=== PATIENT | male | born 1965 | race Caucasian/White ===

== ENCOUNTER 2017-11-12 08:36 | Emergency (ER) | payer BC ==
--- NOTE | 2017-11-12 08:57 | ED ---
General Adult HPI - General Chief complaint: Abdominal Pain Stated complaint: Abd Pain Time Seen by Provider: 11/12/17 08:46 Source: patient, RN notes reviewed Mode of arrival: ambulatory Limitations: no limitations - History of Present Illness Initial comments: Patient is a 52-year-old male presenting to the emergency room today with a chief complaint of left lower quadrant abdominal pain started approximately 2 hours ago. Patient states he was up getting ready this morning when he began having some discomfort in the left lower quadrant. He states this pain seems to be coming and going. Currently rates it a 5/10. Denies any radiation. Patient does admit that he fell again a difficult time urinating earlier. Thought he maybe saw some blood in his urine earlier. He does admit that approximately a month ago he had a dark bowel movement was worried that it could 've been blood. Patient denies any bowel movement this morning. He denies any other complaints or symptoms currently. Patient denies any recent fever, chills , shortness of breath, chest pain, back pain, nausea or vomiting, numbness or tingling, constipation or diarrhea, headaches or visual changes, or any other complaints. - Related Data Previous Rx's Medication Instructions Recorded Hydrocodone/Acetaminophen [[place] 1 each PO Q6HR PRN #12 tab 11/12/17 5-325] Ibuprofen [Motrin] 600 mg PO Q6HR PRN #40 day 11/12/17 Ondansetron [Zofran] 4 mg PO Q8HR PRN #15 tab 11/12/17 Tamsulosin [Flomax] 0.4 mg PO DAILY #10 cap 11/12/17 Allergies Allergy/AdvReac Type Severity Reaction Status Date / Time lidocaine Allergy Itching Verified 11/12/17 09:09 Review of Systems ROS Statement: Those systems with pertinent positive or pertinent negative responses have been documented in the HPI. ROS Other: All systems not noted in ROS Statement are negative. Past Medical History Past Medical History: No Reported History History of Any Multi-Drug Resistant Organisms: None Reported Past Surgical History: Orthopedic Surgery Additional Past Surgical History / Comment(s): bilateral knee surgery, nasal surgery Past Psychological History: No Psychological Hx Reported Smoking Status: Never smoker Past Alcohol Use History: Occasional Past Drug Use History: None Reported General Exam - General Exam Comments Initial Comments: General: The patient is awake and alert, in no distress, and does not appear acutely ill. Eye: Pupils are equal, round and reactive to light, extra-ocular movements are intact. No nystagmus. There is normal conjunctiva bilaterally. No signs of icterus. Ears, nose, mouth and throat: There are moist mucous membranes and no oral lesions. Neck: The neck is supple, there is no tenderness or JVD. Cardiovascular: There is a regular rate and rhythm. No murmur, rub or gallop is appreciated. Respiratory: Lungs are clear to auscultation, respirations are non-labored, breath sounds are equal. No wheezes, stridor, rales, or rhonchi. Gastrointestinal: Soft, non-distended, non-tender abdomen without masses or organomegaly noted. There is no rebound or guarding present. No CVA tenderness. Musculoskeletal: Normal ROM, no tenderness. Strength 5/5. Sensation intact. Pulses equal bilaterally 2+. Neurological: A&O x 3. CN II-XII intact, There are no obvious motor or sensory deficits. Coordination appears grossly intact. Speech is normal. Skin: Skin is warm and dry and no rashes or lesions are noted. Psychiatric: Cooperative, appropriate mood & affect, normal judgment. Limitations: no limitations Course Vital Signs 11/12/17 11/12/17 08:40 09:26 Temperature 97.7 F Pulse Rate 64 74 Respiratory 18 17 Rate Blood Pressure 127/78 111/75 O2 Sat by Pulse 98 98 Oximetry - Reevaluation(s) Reevaluation #1: 11/12/17 08:56 Patient currently resting comfortable. Vitals are stable. Patient admitted into left lower quadrant pain starting 2 hours ago that comes and goes. Possible hematuria this morning. Patient will have urinalysis along with blood work obtained. Patient states does not want anything for pain at this time. Medical Decision Making - Medical Decision Making Patient's a CT does show a 4 mm stone on the left. Patient's urinalysis no signs of infection. Patient will be treated with Flomax, pain medication given a prescription for [place] and advised follow-up with urology if symptoms do not improve over 2 days. - Lab Data Result diagrams: 11/12/17 08:54 11/12/17 08:54 Lab Results 11/12/17 11/12/17 11/12/17 Range/Units 08:54 08:54 08:54 WBC 4.8 (3.8-10.6) k/uL RBC 5.28 (4.30-5.90) m/uL Hgb 15.8 (13.0-17.5) gm/dL Hct 46.0 (39.0-53.0) % MCV 87.2 (80.0-100.0) fL MCH 29.9 (25.0-35.0) pg MCHC 34.3 (31.0-37.0) g/dL RDW 13.1 (11.5-15.5) % Plt Count 157 (150-450) k/uL Neutrophils % 64 % Lymphocytes % 25 % Monocytes % 6 % Eosinophils % 2 % Basophils % 1 % Neutrophils # 3.1 (1.3-7.7) k/uL Lymphocytes # 1.2 (1.0-4.8) k/uL Monocytes # 0.3 (0-1.0) k/uL Eosinophils # 0.1 (0-0.7) k/uL Basophils # 0.0 (0-0.2) k/uL Sodium 141 (137-145) mmol/L Potassium 3.9 (3.5-5.1) mmol/L Chloride 106 (98-107) mmol/L Carbon Dioxide 26 (22-30) mmol/L Anion Gap 9 mmol/L BUN 12 (9-20) mg/dL Creatinine 0.79 (0.66-1.25) mg/dL Est GFR (CKD-EPI)AfAm >90 (>60 ml/min/1.73 sqM) Est GFR (CKD-EPI)NonAf >90 (>60 ml/min/1.73 sqM) Glucose 102 H (74-99) mg/dL Calcium 9.4 (8.4-10.2) mg/dL Total Bilirubin 0.5 (0.2-1.3) mg/dL AST 35 (17-59) U/L ALT 55 (21-72) U/L Alkaline Phosphatase 70 (38-126) U/L Total Protein 6.9 (6.3-8.2) g/dL Albumin 4.5 (3.5-5.0) g/dL Amylase 59 (30-110) U/L Lipase 66 (23-300) U/L Urine Color Light Red Urine Appearance Cloudy (Clear) Urine pH 5.5 (5.0-8.0) Ur Specific [place] 1.023 (1.001-1.035) Urine Protein 1+ H (Negative) Urine Glucose (UA) Negative (Negative) Urine Ketones Negative (Negative) Urine Blood Large H (Negative) Urine Nitrite Negative (Negative) Urine Bilirubin Negative (Negative) Urine Urobilinogen <2.0 (<2.0) mg/dL Ur Leukocyte Esterase Negative (Negative) Urine RBC >182 H (0-5) /hpf Urine WBC <1 (0-5) /hpf Ur Squamous Epith Cells <1 (0-4) /hpf Urine Mucus Moderate H (None) /hpf Disposition Clinical Impression: Kidney stones Disposition: HOME SELF-CARE Condition: Good Instructions: Kidney Stones (ED) Additional Instructions: Please use medication as discussed. Please follow-up with urology/family doctor in the next 2 days of symptoms have not improved. Please return to emergency room if the symptoms increase or worsen or for any other concerns. Prescriptions: Hydrocodone/Acetaminophen [[place] 5-325] 1 each PO Q6HR PRN #12 tab PRN Reason: Pain Ibuprofen [Motrin] 600 mg PO Q6HR PRN #40 day PRN Reason: Pain Ondansetron [Zofran] 4 mg PO Q8HR PRN #15 tab PRN Reason: Nausea Tamsulosin [Flomax] 0.4 mg PO DAILY #10 cap Is patient prescribed a controlled substance at d/c from ED?: No Referrals: None,Stated [Primary Care Provider] - 1-2 days Sky Traylor MD [STAFF PHYSICIAN] - 1-2 days Time of Disposition: 11:07
[2017-11-12 09:16] LABS: Basophils % (A) 1 %; Eosinophils # (A) 0.1 k/uL (0-0.7); Eosinophils % (A) 2 %; HGB 15.8 gm/dL (13.0-17.5); Lymphocytes # (A) 1.2 k/uL (1.0-4.8); Lymphocytes % (A) 25 %; MCH 29.9 pg (25.0-35.0); MCHC 34.3 g/dL (31.0-37.0); MCV 87.2 fL (80.0-100.0); Monocytes # (A) 0.3 k/uL (0-1.0); Monocytes % (A) 6 %; Neutrophils # (A) 3.1 k/uL (1.3-7.7); Neutrophils % (A) 64 %; Platelet Count 157 k/uL (150-450); RBC 5.28 m/uL (4.30-5.90); RDW 13.1 % (11.5-15.5); WBC 4.8 k/uL (3.8-10.6)
[2017-11-12] MEDS ORDERED: SODIUM CHLORIDE 0.9% 1,000 ML IV STA (09:25)
[2017-11-12] MEDS ORDERED: ONDANSETRON 4 MG/2 ML VIAL IVP STA (09:25)
[2017-11-12 09:27] LABS: ALT 55 U/L (21-72); AST 35 U/L (17-59); Albumin 4.5 g/dL (3.5-5.0); Alkaline Phosphatase 70 U/L (38-126); Amylase 59 U/L (30-110); Anion Gap 9 mmol/L; Blood Urea Nitrogen 12 mg/dL (9-20); Calcium 9.4 mg/dL (8.4-10.2); Carbon Dioxide 26 mmol/L (22-30); Chloride 106 mmol/L (98-107); Glucose 102 mg/dL (74-99); Lipase 66 U/L (23-300); Potassium 3.9 mmol/L (3.5-5.1); Sodium 141 mmol/L (137-145); Total Bilirubin 0.5 mg/dL (0.2-1.3); Total Protein 6.9 g/dL (6.3-8.2)
--- NOTE | 2017-11-12 09:30 | XR ---
EXAMINATION TYPE: XR KUB DATE OF EXAM: 11/12/2017 COMPARISON: NONE HISTORY: Pain TECHNIQUE: One view abdominal series FINDINGS: The osseous structures are intact. The bowel gas pattern is nonspecific. Lung bases are clear. Hype rtrophic change of the spine. There is a calcification between the left third and fourth transverse p rocess measuring 3 mm. IMPRESSION: 1. Nonspecific abdomen. 2. Question a mid left ureteral calculus measuring 3 mm.
[2017-11-12] MEDS ORDERED: MORPHINE SULFATE 4 MG/ML SYRINGE IVP STA (09:31)
[2017-11-12 09:33] LABS: Appearance,Urine Cloudy (Clear); Bilirubin,Urine Negative (Negative); Blood,Urine Large (Negative); Color,Urine Light Red; Glucose,Urine (UA) Negative (Negative); Ketones,Urine Negative (Negative); Leukocyte Esterase,Urine Negative (Negative); Mucus,Urine Moderate /hpf; Nitrite,Urine Negative (Negative); PH, Urine 5.5 (5.0-8.0); Protein,Urine 1+ (Negative); RBC,Urine >182 /hpf (0-5); Specific Gravity,Urine 1.023 (1.001-1.035); Squamous Epithelial Cell,Urine <1 /hpf (0-4); Urobilinogen,Urine <2.0 mg/dL (<2.0); WBC,Urine <1 /hpf (0-5)
--- NOTE | 2017-11-12 10:29 | CT ---
EXAMINATION TYPE: CT abdomen pelvis wo con DATE OF EXAM: 11/12/2017 COMPARISON: None INDICATION: LLQ pain, hematuria DLP: 832.2 mGycm, Automated exposure control for dose reduction was used. CONTRAST: 0 mL of Isovue 370. Study performed without Oral Contrast TECHNIQUE: Axial images were obtained from above the diaphragm to the pubic rami in the axial plane a t 5 mm thick sections. Reconstructed images are reviewed on the computer in the coronal plane. FINDINGS: Limited CT sections are obtained the lung bases. The lung bases are clear. CT ABDOMEN: Liver: Normal Spleen: Normal Pancreas: Normal Adrenal glands: The adrenal glands are normal. Gallbladder: Normal Kidneys: No masses are evident. There is a mild left hydronephrosis. There is a 0.4 cm obstructing pr oximal left ureteral stone just below the ureteral pelvic junction. Mild inflammatory type change robert ears to be adjacent to the proximal left ureter. Urinary bladder is decompressed. No cysts are presen t. Aorta: Normal Inferior vena cava: Normal. CT PELVIS: Loops of bowel within the abdomen and pelvis are normal. Study is without oral contrast limiting bowel evaluation. Couple of diverticular changes are within the sigmoid colon. Appendix: Normal as visualized. Urinary bladder: Decompressed and cannot be well evaluated. No obvious calcifications are evident. Genitourinary structures: Prostate calcification is present. Osseous structures: No suspicious lytic or sclerotic lesions. IMPRESSIONS: 1. 0.4 cm obstructing proximal left ureteral stone with mild left hydronephrosis. 2. Diverticulosis without acute diverticulitis.
[2017-11-12 11:23] VITALS: BP 119/72; PULSE 61; RESP 18; TEMP 98.1
== END 2017-11-12 11:23 | disposition home or self-care (01) ==
LOC: EC 08:36
DX: N20.0 Calculus of kidney (principal); R19.5 Other fecal abnormalities; Z88.4 Allergy status to anesthetic agent
CPT/HCPCS: 99284; 96374; 96375; 96361; 36415; 80053; 82150; 83690; 85025; 81001; 74018; 74176; J2270; J2405

== ENCOUNTER → 2017-11-18 | Outpatient (CLI) | payer BC ==
--- NOTE | 2017-11-18 11:52 | XR ---
EXAMINATION TYPE: XR KUB DATE OF EXAM: 11/18/2017 COMPARISON: 11/12/2017 HISTORY: Follow-up left ureteral calculus TECHNIQUE: One view abdominal series FINDINGS: The osseous structures are intact. The bowel gas pattern is nonspecific. Lung bases are clear. Hypert rophic change of the spine. There is a calcification between the left third and fourth transverse pro cess measuring 3 mm. IMPRESSION: 1. Stable mid left ureteral calculus measuring 3 mm. Unchanged in position.
== END | disposition home or self-care (01) ==
LOC: RADXRMAIN 11:25
PROVIDERS: ATTEND Urology
DX: N20.1 Calculus of ureter (principal)
CPT/HCPCS: 74018

== ENCOUNTER → 2018-03-18 | Day surgery (SDC) | payer BC ==
[2018-03-17 09:06] VITALS: BMI 29.9
[~2018-03-18] MED LIST: LACTATED RINGERS 1,000 ML IV SCH; LIDOCAINE 1% INJ 10MG/ML (20 ML MDV) ONE; PROPOFOL 10 MG/ML 20 ML VIAL IV ONE
[2018-03-18 08:27] VITALS: RESP 16; TEMP 97.4
--- NOTE | 2018-03-18 09:35 | P.GSHP ---
History of Present Illness H&P Date: 03/18/18 Chief Complaint: Colon cancer screening Patient here today for screening colonoscopy. He was recently seen in the office for evaluation of asymptomatic cholelithiasis. No bowel related complaints other than some chronic diarrhea. This is been present since his youth. No rectal bleeding or melena. Past Medical History Past Medical History: Deep Vein Thrombosis (DVT), Sleep Apnea/CPAP/BIPAP Additional Past Medical History / Comment(s): kidney stone,uses cpap,rt leg dvt post knee surg 10 yrs ago approx History of Any Multi-Drug Resistant Organisms: None Reported Past Surgical History: Orthopedic Surgery Additional Past Surgical History / Comment(s): bilateral knee surgery, nasal surgery,laser procedure to remove kidney stone Past Anesthesia/Blood Transfusion Reactions: No Reported Reaction, Motion Sickness Smoking Status: Never smoker - Past Family History Mother Family Medical History: No Reported History Medications and Allergies Home Medications Medication Instructions Recorded Confirmed Type Ibuprofen [Motrin] 400 mg PO ONCE PRN 03/17/18 03/18/18 History Allergies Allergy/AdvReac Type Severity Reaction Status Date / Time aloe with lidocaine topical Allergy rash, Uncoded 03/18/18 08:17 itching Surgical - Exam Vital Signs Temp Pulse Resp BP Pulse Ox 97.4 F L 58 L 16 107/57 95 03/18/18 08:26 03/18/18 08:26 03/18/18 08:26 03/18/18 08:26 03/18/18 08:26 Physical exam: General: Well-developed, well-nourished HEENT: Normocephalic, sclerae nonicteric Abdomen: Nontender, nondistended Extremities: No edema Neuro: Alert and oriented Assessment and Plan (1) Colon cancer screening Narrative/Plan: Will proceed with colonoscopy at this time. Current Visit: Yes Status: Acute Code(s): Z12.11 - ENCOUNTER FOR SCREENING FOR MALIGNANT NEOPLASM OF COLON SNOMED Code(s): 037527382
--- NOTE | 2018-03-18 09:52 | P.PCN ---
Date of Procedure: 03/18/18 Procedure(s) Performed: PREOPERATIVE DIAGNOSIS: Colon cancer screening POSTOPERATIVE DIAGNOSIS: Transverse colon polyp, rectal polyp, mild diverticulosis PROCEDURE: Colonoscopy snare polypectomy ANESTHESIA: MAC SURGEON: Ric Mosher M.D. SPECIMENS: Polyps ENDOSCOPIC PROCEDURE: The patient was placed on the endoscopy table in the left decubitus position. The Olympus colonoscope was inserted into the anus and passed under direct visualization to the base of the cecum. The appendiceal orifice was visualized. From that point the scope was slowly withdrawn inspecting all surfaces carefully. There were no neoplastic inflammatory or polypoid lesions throughout the cecum and ascending colon. In the midtransverse colon a small polyp was identified and removed using the snare with cautery technique. The remainder of the transverse descending and sigmoid colon appeared normal. The proximal rectum another polyp was identified and removed in a similar fashion. The remainder the rectum appeared normal. There was mild left-sided diverticulosis present. Digital rectal examination was normal. The patient was taken to the recovery room in stable condition per anesthesia guidelines. RECOMMENDATIONS: Await biopsy results. Anticipate follow-up colonoscopy 5 years.
[2018-03-18 10:03] VITALS: BP 145/92; PULSE 60
== END ==
LOC: ORWHC2ENDO 08:02
PROVIDERS: ATTEND Surgery
DX: Z12.11 Encounter for screening for malignant neoplasm of colon (principal); D12.3 Benign neoplasm of transverse colon; K62.1 Rectal polyp; K57.30 Diverticulosis of large intestine without perforation or abscess without bleeding; G47.33 Obstructive sleep apnea (adult) (pediatric); Z99.89 Dependence on other enabling machines and devices; Z86.718 Personal history of other venous thrombosis and embolism; Z87.442 Personal history of urinary calculi; Z88.4 Allergy status to anesthetic agent; Z88.8 Allergy status to other drugs, medicaments and biological substances
CPT/HCPCS: 88305; 45385; J2001; J2704

== ENCOUNTER 2019-06-18 21:59 | Observation (INO) | payer BC ==
[2019-06-18] MEDS ORDERED: SODIUM CHLORIDE 0.9% 1,000 ML IV STA (22:13)
[2019-06-18] MEDS ORDERED: ONDANSETRON 4 MG/2 ML VIAL IVP STA (22:13)
[2019-06-18 22:26] LABS: Appearance,Urine Clear (Clear); Bilirubin,Urine Negative (Negative); Blood,Urine Negative (Negative); Color,Urine Yellow; Glucose,Urine (UA) Negative (Negative); Ketones,Urine Negative (Negative); Leukocyte Esterase,Urine Negative (Negative); Nitrite,Urine Negative (Negative); PH, Urine 6.5 (5.0-8.0); Protein,Urine Negative (Negative); Specific Gravity,Urine 1.022 (1.001-1.035); Urobilinogen,Urine <2.0 mg/dL (<2.0)
[2019-06-18 22:42] LABS: Basophils % (A) 0 %; Eosinophils # (A) 0.2 k/uL (0-0.7); Eosinophils % (A) 2 %; HCT 47.9 % (39.0-53.0); HGB 16.6 gm/dL (13.0-17.5); Lymphocytes # (A) 1.3 k/uL (1.0-4.8); Lymphocytes % (A) 10 %; MCH 29.9 pg (25.0-35.0); MCHC 34.6 g/dL (31.0-37.0); MCV 86.3 fL (80.0-100.0); Mean Platelet Volume 8.1; Monocytes # (A) 0.7 k/uL (0-1.0); Monocytes % (A) 6 %; Neutrophils # (A) 10.5 k/uL (1.3-7.7); Neutrophils % (A) 82 %; Platelet Count 161 k/uL (150-450); RBC 5.55 m/uL (4.30-5.90); RDW 12.7 % (11.5-15.5); WBC 12.9 k/uL (3.8-10.6)
[2019-06-18 22:51] LABS: ALT 42 U/L (4-49); AST 32 U/L (17-59); African American GFR (CKD) >90 (>60 ml/min/1.73 sqM); Albumin 4.8 g/dL (3.5-5.0); Alkaline Phosphatase 71 U/L (38-126); Anion Gap 9 mmol/L; Blood Urea Nitrogen 9 mg/dL (9-20); Calcium 9.6 mg/dL (8.4-10.2); Carbon Dioxide 26 mmol/L (22-30); Chloride 102 mmol/L (98-107); Glucose 117 mg/dL (74-99); Non-African American GFR(CKD) >90 (>60 ml/min/1.73 sqM); Potassium 3.7 mmol/L (3.5-5.1); Sodium 137 mmol/L (137-145); Total Bilirubin 0.7 mg/dL (0.2-1.3); Total Protein 7.4 g/dL (6.3-8.2)
--- NOTE | 2019-06-18 22:56 | ED ---
General Adult HPI - General Source: patient, RN notes reviewed, old records reviewed Mode of arrival: ambulatory Limitations: no limitations <Gregorio Rowland - Last Filed: 06/18/19 23:45> <Shanta Limon - Last Filed: 06/19/19 03:57> - General Chief complaint: Abdominal Pain Stated complaint: Abd pain Time Seen by Provider: 06/18/19 22:08 - History of Present Illness Initial comments: 54-year-old male patient presents to ED for acutely right lower quadrant abdominal pain. Patient was that this pain began approximately 3 AM. Reports has been constant in nature. Reports he has had nausea without emesis. Does report that he had a history of kidney stones however this feels different. Denies any other complaints. Systemic: Pt denies fatigue, fever/chills, rash. Pt denies weakness, night sweats, weight loss. Neuro: Pt denies headache, visual disturbances, syncope or pre-syncope. HEENT: Pt denies ocular discharge or irritation, otalgia, rhinorrhea, pharyngitis or notable lymphadenopathy. Cardiopulmonary: Pt denies chest pain, SOB, heart palpitations, dyspnea on exertion. Abdominal/GI: Pt denies abdominal pain, n/v/d. : Pt denies dysuria, burning w/ urination, frequency/urgency. Denies new onset urinary or bowel incontinence. MSK: Pt denies myalgia, loss of strength or function in extremities. Neuro: Pt denies new onset weakness, paresthesias. (Gregorio Rowland) - Related Data Home Medications Medication Instructions Recorded Confirmed Ibuprofen [Motrin] 400 mg PO ONCE PRN 03/17/18 03/18/18 Allergies Allergy/AdvReac Type Severity Reaction Status Date / Time amoxicillin Allergy Rash/Hives Verified 06/18/19 22:04 aloe with lidocaine topical Allergy rash, Uncoded 06/18/19 22:03 itching Review of Systems ROS Other: All systems not noted in ROS Statement are negative. <Gregorio Rowland - Last Filed: 06/18/19 23:45> ROS Other: All systems not noted in ROS Statement are negative. <Shanta Limon - Last Filed: 06/19/19 03:57> ROS Statement: Those systems with pertinent positive or pertinent negative responses have been documented in the HPI. Past Medical History Past Medical History: Deep Vein Thrombosis (DVT), Sleep Apnea/CPAP/BIPAP Additional Past Medical History / Comment(s): kidney stone,uses cpap,rt leg dvt post knee surg 10 yrs ago approx History of Any Multi-Drug Resistant Organisms: None Reported Past Surgical History: Orthopedic Surgery Additional Past Surgical History / Comment(s): bilateral knee surgery, nasal surgery,laser procedure to remove kidney stone Past Anesthesia/Blood Transfusion Reactions: No Reported Reaction, Motion Sickness Past Psychological History: No Psychological Hx Reported Smoking Status: Never smoker Past Alcohol Use History: Occasional Past Drug Use History: None Reported - Past Family History Mother Family Medical History: No Reported History <Gregorio Rowland - Last Filed: 06/18/19 23:45> General Exam Limitations: no limitations <Gregorio Rowland - Last Filed: 06/18/19 23:45> - General Exam Comments Initial Comments: Constitutional: NAD, AOX3, Pt has pleasant affect. HEENT: NC/AT, trachea midline, neck supple, no lymphadenopathy. Posterior pharynx non erythematous, without exudates. External ears appear normal, without discharge. Mucous membranes moist. Eyes PERRLA, EOM intact. There is no scleral icterus. No pallor noted. Cardiopulmonary: RRR, no murmurs, rubs or gallops, no JVD noted. Lungs CTAB in anterior and posterior ritter. No peripheral edema. Abdominal exam: Abdomen soft and non-distended. Abdomen non-tender to palpation in all 4 quadrants. Bowel sounds active in LLQ. No hepatosplenomegaly. No ecc hymosis Neuro: CN II-XII grossly intact. No nuchal rigidity. No raccon eyes, no sales sign, no hemotympanum. No cervical spinal tenderness. MSK: No posterior calf tenderness bilaterally, homans sign negative bilaterally. Posterior tibialis and radial pulse +2 bilaterally. Sensation intact in upper and lower extremities. Full active ROM in upper and lower extremities, 5/5 stregnth. (Gregorio Rowland) Course Vital Signs 06/18/19 06/18/19 22:00 23:59 Temperature 98.6 F 98.5 F Pulse Rate 74 76 Respiratory 16 18 Rate Blood Pressure 124/84 141/89 O2 Sat by Pulse 94 L 97 Oximetry Medical Decision Making - Lab Data Result diagrams: 06/18/19 22:26 06/18/19 22:26 <Gregorio Rowland - Last Filed: 06/18/19 23:45> - Lab Data Result diagrams: 06/18/19 22:26 06/18/19 22:26 <Shanta Limon - Last Filed: 06/19/19 03:57> - Medical Decision Making 54-year-old male patient presents to ED for acutely right lower quadrant abdominal pain. Patient was that this pain began approximately 3 AM. Reports has been constant in nature. Reports he has had nausea without emesis. Does report that he had a history of kidney stones however this feels different. Denies any other complaints. Patient vital signs are stable, afebrile. Physical exam mild right lower quadrant tenderness. Laboratory investigations revealed mild leukocytosis 12.9. CT abdomen and pelvis displayed thickened appendix with surrounding inflammatory change consistent with acute appendicitis. Patient stated on IV antibiotics, will be admitted. Patient requests Dr. Mosher as they were previously established. Dr. De León will accept p atient. Case discussed and pt seen by Dr. Limon. (Gregorio Rowland) I personally saw and evaluated this patient is experiencing right lower quadrant pain with any movement or palpation. Patient reports when he sitting the pain isn't too bad and he would actually like to decline any pain medications at this time. Labs reveal leukocytosis with a white count of only 12.9, computed tomography scan confirms an inflamed appendix with no signs of perforation or abscess. Patient has previously followed with Dr. de león for colonoscopy and would prefer to be evaluated by Dr. Mosher as a surgeon. Patient care was discussed with Dr. Mosher who accepts the admission, agrees with plan for antibiotics, PRN analgesia and antiemetics. (Shanta Limon) - Lab Data Lab Results 06/18/19 06/18/19 06/18/19 Range/Units 22:13 22:26 22:26 WBC 12.9 H (3.8-10.6) k/uL RBC 5.55 (4.30-5.90) m/uL Hgb 16.6 (13.0-17.5) gm/dL Hct 47.9 (39.0-53.0) % MCV 86.3 (80.0-100.0) fL MCH 29.9 (25.0-35.0) pg MCHC 34.6 (31.0-37.0) g/dL RDW 12.7 (11.5-15.5) % Plt Count 161 (150-450) k/uL Neutrophils % 82 % Lymphocytes % 10 % Monocytes % 6 % Eosinophils % 2 % Basophils % 0 % Neutrophils # 10.5 H (1.3-7.7) k/uL Lymphocytes # 1.3 (1.0-4.8) k/uL Monocytes # 0.7 (0-1.0) k/uL Eosinophils # 0.2 (0-0.7) k/uL Basophils # 0.0 (0-0.2) k/uL Sodium 137 (137-145) mmol/L Potassium 3.7 (3.5-5.1) mmol/L Chloride 102 (98-107) mmol/L Carbon Dioxide 26 (22-30) mmol/L Anion Gap 9 mmol/L BUN 9 (9-20) mg/dL Creatinine 0.67 (0.66-1.25) mg/dL Est GFR (CKD-EPI)AfAm >90 (>60 ml/min/1.73 sqM) Est GFR (CKD-EPI)NonAf >90 (>60 ml/min/1.73 sqM) Glucose 117 H (74-99) mg/dL Calcium 9.6 (8.4-10.2) mg/dL Total Bilirubin 0.7 (0.2-1.3) mg/dL AST 32 (17-59) U/L ALT 42 (4-49) U/L Alkaline Phosphatase 71 (38-126) U/L Total Protein 7.4 (6.3-8.2) g/dL Albumin 4.8 (3.5-5.0) g/dL Lipase 55 (23-300) U/L Urine Color Yellow Urine Appearance Clear (Clear) Urine pH 6.5 (5.0-8.0) Ur Specific [place] 1.022 (1.001-1.035) Urine Protein Negative (Negative) Urine Glucose (UA) Negative (Negative) Urine Ketones Negative (Negative) Urine Blood Negative (Negative) Urine Nitrite Negative (Negative) Urine Bilirubin Negative (Negative) Urine Urobilinogen <2.0 (<2.0) mg/dL Ur Leukocyte Esterase Negative (Negative) Disposition Is patient prescribed a controlled substance at d/c from ED?: No <Gregorio Rowland - Last Filed: 06/18/19 23:45> Is patient prescribed a controlled substance at d/c from ED?: No <Shanta Limon - Last Filed: 06/19/19 03:57> Clinical Impression: Acute appendicitis Disposition: ADMITTED IP TO THIS HOSP Condition: Serious
--- NOTE | 2019-06-18 23:11 | CT ---
EXAMINATION TYPE: CT abdomen pelvis w con DATE OF EXAM: 06/18/2019 COMPARISON: 11/12/2017 HISTORY: RLQ pain CT DLP: 1351.2 mGycm Automated exposure control for dose reduction was used. CONTRAST: Performed with IV Contrast, patient injected with 100 mL of Isovue 300. Multiple axial sections were obtained from the diaphragm to the floor the pelvis with intravenous con trast. FINDINGS: Lung bases are clear of infiltrate. There is no pleural effusion. Heart size is normal. There is no p ericardial effusion. Liver spleen pancreas appear normal. There are multiple gallstones. The bile davon ts are not dilated. There is no adrenal mass. Stomach is intact. Kidneys show satisfactory contrast opacification. There is no hydronephrosis. Delayed images show normal renal excretion. Ureters are not dilated. Bladder di stends smoothly. There is no inguinal hernia. There is prostatic calcification. There is no free flui d in the pelvis. There is no evidence of a pelvic mass. There are few scattered sigmoid diverticula. There is no diverticulitis. There is retrocecal thickened appendix with mild surrounding edema. Appendix measures 12 mm. There is no free air. There is no ascites. There is no sign of a bowel obstruction. Lumbar vertebra h ave normal alignment. Posterior elements are intact. There is no compression fracture. IMPRESSION: Thickened appendix with surrounding inflammatory changes related to acute appendicitis. This is a ratna nge compared to last exam. There is clearing of the left renal obstruction compared to old exam.
[2019-06-18] MEDS ORDERED: MORPHINE SULFATE 4 MG/ML SYRINGE IV PRN (23:25)
[2019-06-18] MEDS ORDERED: ONDANSETRON 4 MG/2 ML VIAL IVP PRN (23:25)
[2019-06-18] MEDS ORDERED: NALOXONE 0.4 MG/ML 1 ML VIAL IV PRN (23:25)
[2019-06-18] MEDS ORDERED: metroNIDAZOLE-NS PMX 500 MG in SALINE 1 100ML.BAG IVPB STA (23:29)
[2019-06-18] MEDS: SODIUM CHLORIDE 0.9% 1,000 ML IV SCH (23:42)
[2019-06-19] MEDS: metroNIDAZOLE-NS PMX 500 MG in SALINE 1 100ML.BAG IVPB SCH ×2 (07:16→15:27)
--- NOTE | 2019-06-19 09:19 | P.GSHP ---
<Judy Cherry A - Last Filed: 06/19/19 09:16> History of Present Illness H&P Date: 06/19/19 Chief Complaint: Abdominal pain CHIEF COMPLAINT: Abdominal pain HISTORY OF PRESENT ILLNESS: 54-year-old male who presents to emergency room chief complaint of abdominal pain. Patient reports he began having right lower pain at approximately 0400 centimeter morning. Patient reports some nausea. He denies emesis. Denies diarrhea or constipation. states that patient had a low grade fever of 99.5 at home. Patient examined this morning at the bedside. Patient states his pain has significantly improved. He is currently rating his pain 1/10. Denies nausea at this time. PAST MEDICAL HISTORY: See list. PAST SURGICAL HISTORY: See list. SOCIAL HISTORY: No illicit drug use. REVIEW OF SYSTEMS: CONSTITUTIONAL: Reports low-grade fever at home. HEENT: Denies blurred vision, vision changes, or eye pain. Denies hemoptysis CARDIOVASCULAR: Denies chest pain or pressure. RESPIRATORY: No shortness of breath. GASTROINTESTINAL: Refer to HPI for pertinent findings HEMATOLOGIC: Denies bleeding disorders. GENITOURINARY: Denies any blood in urine. SKIN: Denies pruitis. Denies rash. PHYSICAL EXAM: VITAL SIGNS: Reviewed. GENERAL: Well-developed in no acute distress. HEENT: No sclera icterus. Extraocular movements grossly intact. Moist buccal mucosa. Head is atraumatic, normocephalic. ABDOMEN: Soft. Nondistended. Minimal tenderness with palpation to right lower quadrant. No peritoneal signs. NEUROLOGIC: Alert and oriented. Cranial nerves II through XII grossly intact. LABORATORY DATA: WBC 12.9. Hemoglobin 16.6. Platelet count 161. Neutrophils 10.5. IMAGING: CT abdomen and pelvis: Thickened appendix with surrounding inflammatory changes related to acute appendicitis. ASSESSMENT: 1. Right lower quadrant abdominal pain 2. Acute appendicitis PLAN: NPO. Continue IV fluids Continue IV antibiotics. Monitor WBC Patient to undergo laparoscopic appendectomy today with Dr. Mosher Nurse practitioner note has been reviewed by physician. Signing provider agrees with the documented findings, assessment, and plan of care. Past Medical History Past Medical History: Deep Vein Thrombosis (DVT), Sleep Apnea/CPAP/BIPAP Additional Past Medical History / Comment(s): kidney stone,uses cpap,rt leg dvt post knee surg 10 yrs ago approx History of Any Multi-Drug Resistant Organisms: None Reported Past Surgical History: Orthopedic Surgery Additional Past Surgical History / Comment(s): bilateral knee surgery, nasal surgery,laser procedure to remove kidney stone Past Anesthesia/Blood Transfusion Reactions: No Reported Reaction, Motion Sickness Past Psychological History: No Psychological Hx Reported Smoking Status: Never smoker Past Alcohol Use History: Occasional Past Drug Use History: None Reported - Past Family History Mother Family Medical History: No Reported History Medications and Allergies Home Medications Medication Instructions Recorded Confirmed Type Docusate [Colace] 100 mg PO ONCE 06/19/19 06/19/19 History Ibuprofen [Motrin Ib] 600 mg PO Q8H PRN 06/19/19 06/19/19 History Allergies Allergy/AdvReac Type Severity Reaction Status Date / Time amoxicillin Allergy Rash/Hives Verified 06/19/19 09:19 aloe with lidocaine topical Allergy rash, Uncoded 06/19/19 09:19 itching Surgical - Exam Vital Signs Temp Pulse Resp BP Pulse Ox 98.6 F 74 16 124/84 94 L 06/18/19 22:00 06/18/19 22:00 06/18/19 22:00 06/18/19 22:00 06/18/19 22:00 Results - Labs 06/18/19 22:26 06/18/19 22:26 Abnormal Lab Results - Last 24 Hours (Table) 06/18/19 06/18/19 Range/Units 22:26 22:26 WBC 12.9 H (3.8-10.6) k/uL Neutrophils # 10.5 H (1.3-7.7) k/uL Glucose 117 H (74-99) mg/dL Diabetes panel 06/18/19 Range/Units 22:26 Sodium 137 (137-145) mmol/L Potassium 3.7 (3.5-5.1) mmol/L Chloride 102 (98-107) mmol/L Carbon Dioxide 26 (22-30) mmol/L BUN 9 (9-20) mg/dL Creatinine 0.67 (0.66-1.25) mg/dL Glucose 117 H (74-99) mg/dL Calcium 9.6 (8.4-10.2) mg/dL AST 32 (17-59) U/L ALT 42 (4-49) U/L Alkaline Phosphatase 71 (38-126) U/L Total Protein 7.4 (6.3-8.2) g/dL Albumin 4.8 (3.5-5.0) g/dL Calcium panel 06/18/19 Range/Units 22:26 Calcium 9.6 (8.4-10.2) mg/dL Albumin 4.8 (3.5-5.0) g/dL Pituitary panel 06/18/19 Range/Units 22:26 Sodium 137 (137-145) mmol/L Potassium 3.7 (3.5-5.1) mmol/L Chloride 102 (98-107) mmol/L Carbon Dioxide 26 (22-30) mmol/L BUN 9 (9-20) mg/dL Creatinine 0.67 (0.66-1.25) mg/dL Glucose 117 H (74-99) mg/dL Calcium 9.6 (8.4-10.2) mg/dL Adrenal panel 06/18/19 Range/Units 22:26 Sodium 137 (137-145) mmol/L Potassium 3.7 (3.5-5.1) mmol/L Chloride 102 (98-107) mmol/L Carbon Dioxide 26 (22-30) mmol/L BUN 9 (9-20) mg/dL Creatinine 0.67 (0.66-1.25) mg/dL Glucose 117 H (74-99) mg/dL Calcium 9.6 (8.4-10.2) mg/dL Total Bilirubin 0.7 (0.2-1.3) mg/dL AST 32 (17-59) U/L ALT 42 (4-49) U/L Alkaline Phosphatase 71 (38-126) U/L Total Protein 7.4 (6.3-8.2) g/dL Albumin 4.8 (3.5-5.0) g/dL <Ric Mosher - Last Filed: 06/19/19 10:57> History of Present Illness As above. Patient with history, physical exam, and CAT scan findings consistent with acute appendicitis. Options reviewed with the patient. We'll proceed with laparoscopic possible open appendectomy. Risks of bleeding, infection, abscess, staple line dehiscence, conversion to an open procedure, ureteral and duodenal injury, hernia, pain reviewed. He understands and wishes to proceed. Surgical - Exam Vital Signs Temp Pulse Resp BP Pulse Ox 98.6 F 74 16 124/84 94 L 06/18/19 22:00 06/18/19 22:00 06/18/19 22:00 06/18/19 22:00 06/18/19 22:00 Results - Labs 06/18/19 22:26 06/18/19 22:26 Abnormal Lab Results - Last 24 Hours (Table) 06/18/19 06/18/19 Range/Units 22:26 22:26 WBC 12.9 H (3.8-10.6) k/uL Neutrophils # 10.5 H (1.3-7.7) k/uL Glucose 117 H (74-99) mg/dL Diabetes panel 06/18/19 Range/Units 22:26 Sodium 137 (137-145) mmol/L Potassium 3.7 (3.5-5.1) mmol/L Chloride 102 (98-107) mmol/L Carbon Dioxide 26 (22-30) mmol/L BUN 9 (9-20) mg/dL Creatinine 0.67 (0.66-1.25) mg/dL Glucose 117 H (74-99) mg/dL Calcium 9.6 (8.4-10.2) mg/dL AST 32 (17-59) U/L ALT 42 (4-49) U/L Alkaline Phosphatase 71 (38-126) U/L Total Protein 7.4 (6.3-8.2) g/dL Albumin 4.8 (3.5-5.0) g/dL Calcium panel 06/18/19 Range/Units 22:26 Calcium 9.6 (8.4-10.2) mg/dL Albumin 4.8 (3.5-5.0) g/dL Pituitary panel 06/18/19 Range/Units 22:26 Sodium 137 (137-145) mmol/L Potassium 3.7 (3.5-5.1) mmol/L Chloride 102 (98-107) mmol/L Carbon Dioxide 26 (22-30) mmol/L BUN 9 (9-20) mg/dL Creatinine 0.67 (0.66-1.25) mg/dL Glucose 117 H (74-99) mg/dL Calcium 9.6 (8.4-10.2) mg/dL Adrenal panel 06/18/19 Range/Units 22:26 Sodium 137 (137-145) mmol/L Potassium 3.7 (3.5-5.1) mmol/L Chloride 102 (98-107) mmol/L Carbon Dioxide 26 (22-30) mmol/L BUN 9 (9-20) mg/dL Creatinine 0.67 (0.66-1.25) mg/dL Glucose 117 H (74-99) mg/dL Calcium 9.6 (8.4-10.2) mg/dL Total Bilirubin 0.7 (0.2-1.3) mg/dL AST 32 (17-59) U/L ALT 42 (4-49) U/L Alkaline Phosphatase 71 (38-126) U/L Total Protein 7.4 (6.3-8.2) g/dL Albumin 4.8 (3.5-5.0) g/dL
[2019-06-19] MEDS ORDERED: HYDROcodone/APAP 5-325MG 1 EACH TAB PO PRN (09:20)
[2019-06-19] MEDS ORDERED: ACETAMINOPHEN TAB 325 MG TAB PO PRN (09:20)
[2019-06-19] MEDS: SODIUM CHLORIDE 0.9% 1,000 ML IV SCH ×3 (10:11→20:52)
[2019-06-19] MEDS ORDERED: ONDANSETRON 4 MG/2 ML VIAL IVP ONE (11:00)
[2019-06-19] MEDS ORDERED: DEXAMETHASONE SOD PHOSPHATE 10 MG/ML 1 ML VIAL IV ONE (11:00)
[2019-06-19] MEDS ORDERED: SCOPOLAMINE 1.5MG/72HR PATCH TRANSDERM ONE (11:00)
[2019-06-19] MEDS ORDERED: IV FLUID CONTINUATION 1,000 ML IV ONE (11:09)
[2019-06-19] MEDS ORDERED: GLYCOPYRROLATE 0.2 MG/ML 2 ML VIAL ONE (11:11)
[2019-06-19] MEDS ORDERED: NEOSTIGMINE 1 MG/ML 10 ML VIAL ONE (11:11)
[2019-06-19] MEDS ORDERED: ceFAZolin 1,000 MG VIAL ONE (11:11)
[2019-06-19] MEDS ORDERED: fentaNYL (PF) 50 MCG/ML 2 ML AMP ONE (11:11)
[2019-06-19] MEDS ORDERED: KETOROLAC 30 MG/ML 1 ML VIAL ONE (11:11)
[2019-06-19] MEDS ORDERED: MIDAZOLAM 2 MG/2 ML VIAL ONE (11:11)
[2019-06-19] MEDS ORDERED: SUCCINYLCHOLINE CHLORIDE 100 MG/5 ML SYR IV ONE (11:11)
[2019-06-19] MEDS ORDERED: ROCURONIUM BROMIDE 10 MG/ML 5 ML VIAL IV ONE (11:11)
[2019-06-19] MEDS: HEPARIN SODIUM,PORCINE 5,000 UNIT/ML 1 ML VIAL SQ SCH (11:11)
[2019-06-19] MEDS ORDERED: PROPOFOL 10 MG/ML 20 ML VIAL IV ONE (11:11)
[2019-06-19] MEDS ORDERED: SODIUM CHLORIDE 0.9% 100 ML with ceFAZolin 2,000 MG IV ONE ×2 (11:35)
[2019-06-19] MEDS ORDERED: LACTATED RINGERS 1,000 ML IV ONE (12:00)
[2019-06-19] MEDS: HYDROmorphone 1 MG/ML 1 ML SYRINGE IVP ONE ×2 (12:12→12:24)
--- NOTE | 2019-06-19 12:12 | P.OP ---
Date of Procedure: 06/19/19 Procedure(s) Performed: PREOPERATIVE DIAGNOSIS: Acute appendicitis POSTOPERATIVE DIAGNOSIS: Same PROCEDURE: Laparoscopic appendectomy SURGEON: Vidhi EBL: 5 mL ANESTHESIA: General COMPLICATIONS: None OPERATIVE PROCEDURE: The patient was brought and placed on the operating table in the supine position. The patient was placed under general anesthesia. The abdomen was prepped and draped in the usual sterile fashion. A small vertical infraumbilical incision was made. The fascia was retracted anteriorly with Jaquelin forceps. The Veress needle was advanced into the peritoneal cavity. The saline drop test was normal. Insufflation took place to 15 mmHg. A 5 mm trocar was then placed. An additional 5 mm suprapubic trocar was placed under direct visualization as well as a 12 mm left lower quadrant trocar under direct visualization. The appendix was inspected. It was acutely inflamed. The mesoappendix was dissected. The base of the appendix was divided using a linear 45 mm intestinal stapler. The mesentery itself was divided using the LigaSure device. The area was then irrigated. No further purulence or bleeding was seen. The appendix was brought out of the peritoneal cavity through the left lower quadrant trocar site using an Endo Catch bag. The fascia at the 12 mm site was closed using a [id number] 0 Vicryl stitch. The skin at all 3 sites was closed using 4-0 Monocryl sutures. Skin glue was then applied. DISPOSITION: Stable to recovery room
[2019-06-20] MEDS: metroNIDAZOLE-NS PMX 500 MG in SALINE 1 100ML.BAG IVPB SCH ×2 (00:19→07:54)
[2019-06-20] MEDS: HEPARIN SODIUM,PORCINE 5,000 UNIT/ML 1 ML VIAL SQ SCH ×2 (00:20→07:52)
[2019-06-20] MEDS: SODIUM CHLORIDE 0.9% 1,000 ML IV SCH (04:09)
[2019-06-20 07:49] VITALS: BP 100/54; PULSE 75; RESP 17; TEMP 97.5
[2019-06-20 07:50] LABS: Basophils % (A) 0 %; Eosinophils % (A) 0 %; HCT 42.3 % (39.0-53.0); HGB 14.4 gm/dL (13.0-17.5); Lymphocytes # (A) 1.3 k/uL (1.0-4.8); Lymphocytes % (A) 12 %; MCH 29.5 pg (25.0-35.0); MCV 86.8 fL (80.0-100.0); Mean Platelet Volume 8.3; Monocytes # (A) 0.6 k/uL (0-1.0); Monocytes % (A) 6 %; Neutrophils # (A) 8.2 k/uL (1.3-7.7); Neutrophils % (A) 81 %; Platelet Count 171 k/uL (150-450); RBC 4.87 m/uL (4.30-5.90); RDW 12.7 % (11.5-15.5); WBC 10.2 k/uL (3.8-10.6)
[2019-06-20] MEDS ORDERED: PANTOPRAZOLE 40 MG/10 ML VIAL IVP SCH (09:00)
--- NOTE | 2019-06-20 10:50 | P.DS ---
<Jo AnnJudy Kecia - Last Filed: 06/20/19 10:48> Providers Expected date of discharge: 06/20/19 Hospital Course: 54-year-old male who presented to emergency room chief complaint of abdominal pain. Patient was found to have acute appendicitis. He underwent laparoscopic appendectomy with Dr. Aguilar. Patient is doing well postoperatively without any immediate complications. He is tolerating diet without nausea or vomiting. Pain is controlled on oral medications. Vital signs are stable. He is afebrile. WBC within normal limits on the day of discharge. He is stable for discharge home today. Please see EMR for further hospital course details. Discharge Diagnosis: 1. Right lower quadrant abdominal pain 2. Acute appendicitis Nurse practitioner note has been reviewed by physician. Signing provider agrees with the documented findings, assessment, and plan of care. Patient Condition at Discharge: Stable Plan - Discharge Summary Discharge Rx Participant: No New Discharge Prescriptions: New oxyCODONE HCL [OxyIR] 5 mg PO Q6H PRN #6 tab PRN Reason: Pain No Action Ibuprofen [Motrin Ib] 600 mg PO Q8H PRN PRN Reason: Pain Docusate [Colace] 100 mg PO ONCE Discharge Medication List Docusate [Colace] 100 mg PO ONCE 06/19/19 [History] Ibuprofen [Motrin Ib] 600 mg PO Q8H PRN 06/19/19 [History] oxyCODONE HCL [OxyIR] 5 mg PO Q6H PRN #6 tab 06/19/19 [Rx] Follow up Appointment(s)/Referral(s): Ric Mosher MD [Medical Doctor] - 06/29/19 8:50 am (patient not in [address] or [facility]) Gunner Coombs MD [Primary Care Provider] - 1-2 days (patient not in [address] or [facility] office will call with appointment time) Patient Instructions/Handouts: *Surgery [facility] - Scopalamine Patch Instructions, Laparoscopic Appendectomy (DC) Discharge Disposition: HOME SELF-CARE <Ric Mosher - Last Filed: 06/20/19 16:02> Providers Date of admission: 06/18/19 23:25 Attending physician: Ric Mosher Primary care physician: Gunner Coombs MD Hospital Course: As above. Patient doing better today. Discharge prior to my arrival.
== END 2019-06-20 10:23 | disposition home or self-care (01) ==
LOC: EC 21:59 → 4SSUR 23:25
PROVIDERS: ADMIT Surgery; ATTEND Surgery
DX: K35.80 Unspecified acute appendicitis (principal); Z88.0 Allergy status to penicillin; Z88.4 Allergy status to anesthetic agent; Z86.718 Personal history of other venous thrombosis and embolism; G47.30 Sleep apnea, unspecified; Z99.89 Dependence on other enabling machines and devices; Z87.442 Personal history of urinary calculi
CPT/HCPCS: 96360; 99285; 36415; 88304; 80053; 83690; 85025 ×2; 81003; 87040; 74177; 44970; G0378 ×3; J2250; J1644 ×2; J1100; J2710; J2405; J0690; J0696 ×2; J3010; J1885; J1170; J0330; J2704; C9113; Q9967

== ENCOUNTER → 2022-05-07 | Outpatient (CLI) | payer BC ==
--- NOTE | 2022-05-07 13:56 | P.SLEEP ---
History of Present Illness DATE: 05/07/2022 CONSULTATION/NEW PATIENT EVALUATION HISTORY OF PRESENT ILLNESS/SLEEP-WAKE EVALUATION: 57-year-old gentleman had been evaluated in the sleep center for obstructive sleep apnea hypopnea syndrome. Last time I sow patient in 2016 for treatment of obstructive sleep apnea hypopnea syndrome. Patient continued to use his CPAP equipment every night for the whole night. I checked his CPAP unit CPAP pressure is 10 cm of water, usage 100%, average 8.2 hours per night, leak is 22 L/m which is acceptable, apnea-hypopnea index 2.3 which is normal. SLEEP SCHEDULE: Usually sleep schedule from 10 PM to 6:30 AM 7 days a week. FALLING ASLEEP: No problems with falling asleep. DURING SLEEP: No snoring on CPAP. Patient wakes up from sleep 3 times with up to 2 episodes of nocturia. No history of hypnogogical hallucinations, sleep paralysis, or cataplexy. DURING THE DAY/WAKE STATE: Patient denied any significant excessive daytime sleepiness although [place] sleepiness scale increased to 12. Patient doesn't take naps. PAST MEDICAL HISTORY: Knee problems. PAST SURGICAL HISTORY: Several knee surgeries, appendectomy, surgery for nasal septum deviation. MEDICATIONS: None. SOCIAL HISTORY: Negative for smoking, alcohol consumption occasional. FAMILY HISTORY: Hyperlipidemia, diabetes. REVIEW OF SYSTEMS: Several awakenings from sleep at night. No fevers. No double vision. No recent chest pain. No shortness of breath. No abdominal pain. No bleeding episodes. No blood in urine. No seizure episodes. PHYSICAL EXAMINATION: GENERAL: A pleasant patient without any distress. VITAL SIGNS: BP 122/79, HR 71, RR 16, weight 231.0 pounds, height 5 foot 10-1/4 inches, body mass index 32.9, temperature 97.9, oxygen saturation at room air 96%. HEENT: PERRLA, EOMI. Evaluation of oropharynx showed tongue protrudes midline, low position of soft palate Mallampati 4. NECK: Supple. No JVD. Thyroid is not palpable. 17 inches in circumference. LUNGS: Clear to percussion and to auscultation. Good air exchange. No wheezing or rhonchi. HEART: S1, S2 regular. No murmurs, gallops or rubs. ABDOMEN: Soft and nontender. Bowel sounds are present. No organomegaly appreciated. EXTREMITIES: No clubbing or cyanosis. AUDIO VISUAL ENGINEER: Awake, alert, and oriented x3. Cranial nerves 2 to 7 intact. There is no fasciculation or atrophy noted. No focal deficits observed. ASSESSMENT: 1. Obstructive sleep apnea hypopnea syndrome for many years. Patient continued to use his CPAP equipment every night for the whole night. Normal respiration on CPAP. 2. Mild obesity by body mass index 32.9. 3. Status post surgical treatment for nasal septum deviation. 4. Status post 3 knee surgeries. 5 status post appendectomy. PLAN: 1. Continue to use CPAP equipment every night for the whole night 2. Prescription was written for all necessary CPAP supplies and also for portable CPAP machine for travel per patient request. 3. Preferable position during sleep on the side. 4. No driving if patient feels any sleepiness. Patient is aware of civil and criminal liability for unsafe driving. 5. Sleep hygiene with regular sleep time for at least 7.5-8 hours. 6. Watching weight. 7. Follow-up visit in 6 months. Thank you very much for referring this patient for consultation. Sincerely, Duran Padron MD, PhD, FAASM. Diplomat of [employer], Sleep Medicine Board by [employer] [facility] [place] Past Medical History Past Medical History: Deep Vein Thrombosis (DVT), Sleep Apnea/CPAP/BIPAP Additional Past Medical History / Comment(s): kidney stone,uses cpap,rt leg dvt post knee surg 10 yrs ago approx History of Any Multi-Drug Resistant Organisms: None Reported Past Surgical History: Orthopedic Surgery Additional Past Surgical History / Comment(s): bilateral knee surgery, nasal surgery,laser procedure to remove kidney stone Past Anesthesia/Blood Transfusion Reactions: No Reported Reaction, Motion Sickness Past Psychological History: No Psychological Hx Reported Past Alcohol Use History: Occasional Past Drug Use History: None Reported - Past Family History Mother Family Medical History: No Reported History Medications and Allergies Home Medications Medication Instructions Recorded Confirmed Type Docusate [Colace] 100 mg PO ONCE 06/19/19 06/19/19 History Ibuprofen [Motrin Ib] 600 mg PO Q8H PRN 06/19/19 06/19/19 History oxyCODONE HCL [OxyIR] 5 mg PO Q6H PRN #6 tab 06/19/19 Rx Allergies Allergy/AdvReac Type Severity Reaction Status Date / Time amoxicillin Allergy Rash/Hives Verified 06/19/19 10:57 aloe with lidocaine topical Allergy rash, Uncoded 06/19/19 10:57 itching Sleep Note - Sleep Note Sleep Note: Temperature: Pulse Rate: Respiratory Rate: Blood Pressure: SpO2: Height: Weight: BMI: Neck Circumference:
== END ==
LOC: SLEEP 13:04
PROVIDERS: ATTEND Internal Medicine
DX: G47.33 Obstructive sleep apnea (adult) (pediatric) (principal); Z99.89 Dependence on other enabling machines and devices; E66.8 Other obesity; Z68.32 Body mass index [BMI] 32.0-32.9, adult; Z98.890 Other specified postprocedural states; Z90.89 Acquired absence of other organs; Z88.0 Allergy status to penicillin; Z88.8 Allergy status to other drugs, medicaments and biological substances
CPT/HCPCS: 99211

== ENCOUNTER 2023-03-23 08:51 | Day surgery (SDC) | payer BC ==
[~2023-03-23 08:51] MED LIST changes: -LIDOCAINE 1% INJ 10MG/ML (20 ML MDV) ONE; -PROPOFOL 10 MG/ML 20 ML VIAL IV ONE
[2023-03-23] MEDS ORDERED: LACTATED RINGERS 1,000 ML IV ONE (09:05)
[2023-03-23 09:27] VITALS: TEMP 97.8
[2023-03-23] MEDS ORDERED: PROPOFOL 10 MG/ML 20 ML VIAL IV ONE (10:01)
--- NOTE | 2023-03-23 10:10 | P.GSHP ---
History of Present Illness H&P Date: 03/23/23 Chief Complaint: Colon cancer screening with history of polyps 58-year-old male here for colonoscopy. Last colonoscopy 5 years ago. Patient with history of tubular adenoma. No bowel complaints. Past Medical History Past Medical History: Deep Vein Thrombosis (DVT), Sleep Apnea/CPAP/BIPAP Additional Past Medical History / Comment(s): kidney stone,uses cpap,rt leg dvt post knee surg 10 yrs ago approx History of Any Multi-Drug Resistant Organisms: None Reported Past Surgical History: Appendectomy, Orthopedic Surgery Additional Past Surgical History / Comment(s): bilateral knee surgery, nasal surgery, laser procedure to remove kidney stone Past Anesthesia/Blood Transfusion Reactions: No Reported Reaction, Motion Sickness Smoking Status: Never smoker - Past Family History Mother Family Medical History: No Reported History Medications and Allergies Home Medications Medication Instructions Recorded Confirmed Type Naproxen Sodium [Aleve] 220 mg PO BID PRN 03/18/23 03/18/23 History Allergies Allergy/AdvReac Type Severity Reaction Status Date / Time amoxicillin Allergy Rash/Hives Verified 03/18/23 14:41 aloe with lidocaine topical Allergy rash, Uncoded 03/18/23 14:41 itching Surgical - Exam Vital Signs Temp Pulse Resp BP Pulse Ox 97.8 F 78 18 131/83 98 03/23/23 09:13 03/23/23 09:13 03/23/23 09:13 03/23/23 09:13 03/23/23 09:13 Physical exam: General: Well-developed, well-nourished HEENT: Normocephalic, sclerae nonicteric Abdomen: Nontender, nondistended Extremities: No edema Neuro: Alert and oriented Assessment and Plan (1) Colon cancer screening Narrative/Plan: Will proceed with colonoscopy at this time Current Visit: No Status: Acute Code(s): Z12.11 - ENCOUNTER FOR SCREENING FOR MALIGNANT NEOPLASM OF COLON SNOMED Code(s): 605126970
--- NOTE | 2023-03-23 10:21 | P.PCN ---
Date of Procedure: 03/23/23 Procedure(s) Performed: PREOPERATIVE DIAGNOSIS: Colon cancer screening with history of polyps POSTOPERATIVE DIAGNOSIS: Normal exam PROCEDURE: Colonoscopy ANESTHESIA: MAC SURGEON: Ric Mosher M.D. SPECIMENS: None ENDOSCOPIC PROCEDURE: The patient was placed on the endoscopy table in the left decubitus position. The Olympus colonoscope was inserted into the anus and passed under direct visualization to the base of the cecum. The appendiceal orifice was visualized. From that point the scope was slowly withdrawn inspecting all surfaces carefully. There were no neoplastic inflammatory or polypoid lesions throughout the cecum, ascending, transverse, descending, sigmoid and rectum. There was no visible diverticulosis noted. Digital rectal examination was normal. The patient was taken to the recovery room in stable condition per anesthesia guidelines. RECOMMENDATIONS: Resume diet. Repeat colonoscopy 7 years.
[2023-03-23 11:03] VITALS: BP 125/81; PULSE 56; RESP 15
== END 2023-03-23 11:14 | disposition home or self-care (01) ==
LOC: ORWHC2ENDO 08:51
PROVIDERS: ATTEND Surgery
DX: Z12.11 Encounter for screening for malignant neoplasm of colon (principal); G47.33 Obstructive sleep apnea (adult) (pediatric); Z86.010 Personal history of colon polyps; Z86.718 Personal history of other venous thrombosis and embolism; Z90.49 Acquired absence of other specified parts of digestive tract; Z88.0 Allergy status to penicillin; Z88.8 Allergy status to other drugs, medicaments and biological substances
CPT/HCPCS: 45378; J2704

== ENCOUNTER 2024-03-31 09:16 | Emergency (ER) | payer BC, OTHER ==
[2024-03-31 09:46] VITALS: RESP 18; TEMP 98.1
--- NOTE | 2024-03-31 10:24 | ED ---
Male Urogenital HPI - General Chief complaint: Urogenital Stated complaint: Urogenital Time Seen by Provider: 03/31/24 10:22 Source: patient, family (), RN notes reviewed Mode of arrival: ambulatory Limitations: no limitations - History of Present Illness Initial comments: 59-year-old male presenting to the ER for evaluation of left lower quadrant a bdominal pain. Patient reports a history of kidney stones and states pain feels similar. He reports for the past 5 to 6 days he has been having an intermittent sharp left lower quadrant abdominal pain. Pain does not radiate. He does admit to left flank pain as well but is unsure if this is due to doing construction work around the house. He denies any dysuria, hematuria, constipation or diarr hea. No fevers. He does admit to nausea and vomiting today. He has taken [id number] Advil and ibuprofen for symptom control. He does report some dizziness and lightheadedness today. He denies any chest pain, shortness of breath or peripheral edema. - Related Data Home Medications Medication Instructions Recorded Confirmed Naproxen Sodium [Aleve] 220 mg PO BID PRN 03/18/23 03/18/23 Previous Rx's Medication Instructions Recorded Acetaminophen-Codeine 300-30mg 1 tab PO Q4H PRN #20 tablet 03/31/24 [Tylenol #3] Ibuprofen [Motrin] 800 mg PO Q6HR #30 tab 03/31/24 Ondansetron Odt [Zofran Odt] 4 mg PO Q8HR PRN #10 tab 03/31/24 Tamsulosin [Flomax] 0.4 mg PO DAILY #7 cap 03/31/24 Allergies Allergy/AdvReac Type Severity Reaction Status Date / Time amoxicillin Allergy Rash/Hives Verified 03/31/24 09:41 aloe with lidocaine topical Allergy rash, Uncoded 03/31/24 09:41 itching Review of Systems ROS Statement: Those systems with pertinent positive or pertinent negative responses have been documented in the HPI. ROS Other: All systems not noted in ROS Statement are negative. Past Medical History Past Medical History: Deep Vein Thrombosis (DVT), Sleep Apnea/CPAP/BIPAP Additional Past Medical History / Comment(s): kidney stone,uses cpap,rt leg dvt post knee surg 10 yrs ago approx History of Any Multi-Drug Resistant Organisms: None Reported Past Surgical History: Appendectomy, Orthopedic Surgery Additional Past Surgical History / Comment(s): bilateral knee surgery, nasal surgery, laser procedure to remove kidney stone Past Anesthesia/Blood Transfusion Reactions: No Reported Reaction, Motion Sickness Past Psychological History: No Psychological Hx Reported Smoking Status: Never smoker Past Alcohol Use History: Occasional Past Drug Use History: None Reported - Past Family History Mother Family Medical History: No Reported History General Exam Limitations: no limitations General appearance: alert, in no apparent distress Respiratory exam: Present: normal lung sounds bilaterally. Absent: respiratory distress, wheezes, rales, rhonchi, stridor Cardiovascular Exam: Present: regular rate, normal rhythm, normal heart sounds. Absent: systolic murmur, diastolic murmur, rubs, gallop, clicks GI/Abdominal exam: Present: soft, normal bowel sounds. Absent: distended, tenderness, guarding, rebound, rigid Extremities exam: Present: normal inspection, full ROM, normal capillary refill. Absent: tenderness, pedal edema, joint swelling, calf tenderness Back exam: Present: normal inspection Neurological exam: Present: alert, oriented X3, CN II-XII intact Skin exam: Present: warm, dry, intact, normal color. Absent: rash Course Vital Signs 03/31/24 03/31/24 09:41 12:24 Temperature 98.1 F Pulse Rate 64 60 Respiratory 18 18 Rate Blood Pressure 128/78 124/77 O2 Sat by Pulse 98 98 Oximetry Medical Decision Making - Medical Decision Making Was pt. sent in by a medical professional or institution (, PA, REPERTOIRE MANAGER, urgent care, hospital, or senior living...) When possible be specific @ -No Did you speak to anyone other than the patient for history (EMS, parent, family, police, friend...)? What history was obtained from this source @ -, at bedside, aiding in HPI and past medical history. Did you review nursing and triage notes (agree or disagree)? Why? @ -I reviewed and agree with nursing and triage notes Were old charts reviewed (outside hosp., previous admission, EMS record, old EKG, old radiological studies, urgent care reports/EKG's, senior living records)? Report findings @ -No old charts were reviewed Differential Diagnosis (chest pain, altered mental status, abdominal pain women, abdominal pain men, vaginal bleeding, weakness, fever, dyspnea, syncope, headache, dizziness, GI bleed, back pain, seizure, CVA, palpatations, mental health, musculoskeletal)? @ -Differential Abdominal Pain Men:Appendicitis, cholecystitis, diverticulosis, ischemic bowel, pancreatitis, hepatitis, UTI, gastroenteritis, AAA, incarcerated hernia, bowel obstruction, constipation, inflammatory bowel, hepatitis, peptic ulcer disease, splenic infarction, perforated viscus, testicular torsion, this is not meant to be an all-inclusive list EKG interpreted by me (3pts min.). @ -As above X-rays interpreted by me (1pt min.). @ -None done CT interpreted by me (1pt min.). @ -CT abdomen pelvis showing moderate to marked left hydronephrosis secondary to an obstructing 5 mm calculus of the left proximal ureter. Cholelithiasis without evidence of acute cholecystitis. U/S interpreted by me (1pt. min.). @ -None done What testing was considered but not performed or refused? (CT, X-rays, U/S, labs)? Why? @ -None What meds were considered but not given or refused? Why? @ -None Did you discuss the management of the patient with other professionals (professionals i.e. , PA, REPERTOIRE MANAGER, lab, RT, psych nurse, social psychologist, real estate lawyer, teacher, housing officer, child welfare caseworker)? Give summary @ -No Was smoking cessation discussed for >3mins.? @ -No Was critical care preformed (if so, how long)? @ -No Were there social determinants of health that impacted care today? How? (Homelessness, low income, unemployed, alcoholism, drug addiction, transportation, low edu. Level, literacy, decrease access to med. care, fdc, rehab)? @ -No Was there de-escalation of care discussed even if they declined (Discuss DNR or withdrawal of care, Hospice)? DNR status @ -No What co-morbidities impacted this encounter? (DM, HTN, Smoking, COPD, CAD, Cancer, CVA, ARF, Chemo, Hep., AIDS, mental health diagnosis, sleep apnea, morbid obesity)? @ -Kidney stones Was patient admitted / discharged? Hospital course, mention meds given and route, prescriptions, significant lab abnormalities, going to OR and other pertinent info. @ -Discharge. 59-year-old male presented to the ER for evaluation of left lower quadrant abdominal pain. History and physical exam completed. Vitals within normal limits. Patient in no signs acute distress nontoxic-appearing. Exam benign. Laboratory studies unimpressive. Urine analysis is hemorrhagic with small blood and 14 RBCs which is likely related to obstructing calculus noted on CT with moderate to marked left hydronephrosis secondary to an obstructing 5 mm calcification of the proximal left ureter. Patient received symptomatic control in the ER with IV fluids, Toradol and Zofran. Upon reevaluation, patient in no signs of acute distress. Results discussed with patient, all questions answered. Patient stable for discharge. Flomax, ibuprofen, Tylenol threes and Zofran prescribed. Antibiotics not indicated at this time as no white count or signs of infection in urine. I advised close follow-up with urology, referral given. Strict return parameters discussed. Patient discharged in stable condition with follow-up to PCP and urology. Patient verbally expressed understanding and agreement with care plan. Case discussed with ED attending, Dr. Velázquez. Undiagnosed new problem with uncertain prognosis? @ -No Drug Therapy requiring intensive monitoring for toxicity (Heparin, Nitro, Insulin, Cardizem)? @ -No Were any procedures done? @ -No Diagnosis/symptom? @ -Hydronephrosis secondary to obstructing calculus Acute, or Chronic, or Acute on Chronic? @ -Acute Uncomplicated (without systemic symptoms) or Complicated (systemic symptoms)? @ -Uncomplicated Side effects of treatment? @ -No Exacerbation, Progression, or Severe Exacerbation? @ -No Poses a threat to life or bodily function? How? (Chest pain, [place], [place], pneumonia, PE, COPD, DKA, ARF, appy, cholecystitis, CVA, Diverticulitis, Homicidal, Suicidal, threat to staff... and all critical care pts) @ -Low at this time - Lab Data Result diagrams: 03/31/24 10:44 03/31/24 10:44 Lab Results 03/31/24 03/31/24 03/31/24 Range/Units 09:50 10:44 10:44 WBC 9.8 (3.8-10.6) k/uL RBC 5.38 (4.30-5.90) m/uL Hgb 16.1 (13.0-17.5) gm/dL Hct 47.8 (39.0-53.0) % MCV 88.9 (80.0-100.0) fL MCH 30.0 (25.0-35.0) pg MCHC 33.8 (31.0-37.0) g/dL RDW 12.5 (11.5-15.5) % Plt Count 174 (150-450) k/uL MPV 7.8 Neutrophils % 79 % Lymphocytes % 12 % Monocytes % 6 % Eosinophils % 1 % Basophils % 0 % Neutrophils # 7.8 H (1.3-7.7) k/uL Lymphocytes # 1.1 (1.0-4.8) k/uL Monocytes # 0.6 (0-1.0) k/uL Eosinophils # 0.1 (0-0.7) k/uL Basophils # 0.0 (0-0.2) k/uL Sodium 140 (137-145) mmol/L Potassium 4.3 (3.5-5.1) mmol/L Chloride 108 H (98-107) mmol/L Carbon Dioxide 28 (22-30) mmol/L Anion Gap 4 mmol/L BUN 19 (9-20) mg/dL Creatinine 0.96 (0.66-1.25) mg/dL Est GFR (CKD-EPI)AfAm >90 (>60 ml/min/1.73 sqM) Est GFR (CKD-EPI)NonAf 88 (>60 ml/min/1.73 sqM) Glucose 102 H (74-99) mg/dL Plasma Lactic Acid Erlin (0.7-2.0) mmol/L Calcium 9.4 (8.4-10.2) mg/dL Total Bilirubin 1.0 (0.2-1.3) mg/dL AST 38 (17-59) U/L ALT 53 H (4-49) U/L Alkaline Phosphatase 78 (38-126) U/L Total Protein 6.9 (6.3-8.2) g/dL Albumin 4.7 (3.5-5.0) g/dL Urine Color Yellow Urine Appearance Clear (Clear) Urine pH 5.5 (5.0-8.0) Ur Specific [place] 1.025 (1.001-1.035) Urine Protein Negative (Negative) Urine Glucose (UA) Negative (Negative) Urine Ketones Negative (Negative) Urine Blood Small H (Negative) Urine Nitrite Negative (Negative) Urine Bilirubin Negative (Negative) Urine Urobilinogen <2.0 (<2.0) mg/dL Ur Leukocyte Esterase Negative (Negative) Urine RBC 14 H (0-5) /hpf Urine WBC 2 (0-5) /hpf Ur Squamous Epith Cells <1 (0-4) /hpf Urine Mucus Many H (None) /hpf 12// Range/Units 10:44 WBC (3.8-10.6) k/uL RBC (4.30-5.90) m/uL Hgb (13.0-17.5) gm/dL Hct (39.0-53.0) % MCV (80.0-100.0) fL MCH (25.0-35.0) pg MCHC (31.0-37.0) g/dL RDW (11.5-15.5) % Plt Count (150-450) k/uL MPV Neutrophils % % Lymphocytes % % Monocytes % % Eosinophils % % Basophils % % Neutrophils # (1.3-7.7) k/uL Lymphocytes # (1.0-4.8) k/uL Monocytes # (0-1.0) k/uL Eosinophils # (0-0.7) k/uL Basophils # (0-0.2) k/uL Sodium (137-145) mmol/L Potassium (3.5-5.1) mmol/L Chloride (98-107) mmol/L Carbon Dioxide (22-30) mmol/L Anion Gap mmol/L BUN (9-20) mg/dL Creatinine (0.66-1.25) mg/dL Est GFR (CKD-EPI)AfAm (>60 ml/min/1.73 sqM) Est GFR (CKD-EPI)NonAf (>60 ml/min/1.73 sqM) Glucose (74-99) mg/dL Plasma Lactic Acid [place]lin 0.8 (0.7-2.0) mmol/L Calcium (8.4-10.2) mg/dL Total Bilirubin (0.2-1.3) mg/dL AST (17-59) U/L ALT (4-49) U/L Alkaline Phosphatase (38-126) U/L Total Protein (6.3-8.2) g/dL Albumin (3.5-5.0) g/dL Urine Color Urine Appearance (Clear) Urine pH (5.0-8.0) Ur Specific [place] (1.001-1.035) Urine Protein (Negative) Urine Glucose (UA) (Negative) Urine Ketones (Negative) Urine Blood (Negative) Urine Nitrite (Negative) Urine Bilirubin (Negative) Urine Urobilinogen (<2.0) mg/dL Ur Leukocyte Esterase (Negative) Urine RBC (0-5) /hpf Urine WBC (0-5) /hpf Ur Squamous Epith Cells (0-4) /hpf Urine Mucus (None) /hpf - EKG Data -: EKG Interpreted by Me EKG Comments: EKG taken at 10: 59 showing a sinus rhythm. No acute ST segment or T wave abnormalities. Left axis deviation. Ventricular rate 64, TX interval 164, QRS duration 94, QT/QTc 401/411. - Radiology Data Radiology results: report reviewed, image reviewed Disposition Clinical Impression: Hydronephrosis with obstructing calculus Disposition: HOME SELF-CARE Condition: Stable Instructions (If sedation given, give patient instructions): Kidney Stones (ED), How to Strain Your Urine (ED) Additional Instructions: Return to the ER for new fevers, uncontrolled symptoms or new symptoms. Follow- up with urology. Take medications as prescribed. Prescriptions: Tamsulosin [Flomax] 0.4 mg PO DAILY #7 cap Ibuprofen [Motrin] 800 mg PO Q6HR #30 tab Acetaminophen-Codeine 300-30mg [Tylenol #3] 1 tab PO Q4H PRN #20 tablet PRN Reason: pain Ondansetron Odt [Zofran Odt] 4 mg PO Q8HR PRN #10 tab PRN Reason: Nausea Is patient prescribed a controlled substance at d/c from ED?: Yes When asked, does pt state using other controlled substances?: No If prescribed controlled substance>3 days was MAPS reviewed?: Prescribed <3 Days If opioid is for acute pain is fill amount 7 days or less?: Yes If Rx opioid, was Start Talking consent form obtained?: Yes Referrals: Belkis Cali MD [Primary Care Provider] - 1-2 days Dale Braden MD [STAFF PHYSICIAN] - 1-2 days Time of Disposition: 11:48
[2024-03-31] MEDS: SODIUM CHLORIDE 0.9% 1,000 ML IV STA (10:48)
[2024-03-31 10:53] LABS: Appearance,Urine Clear (Clear); Bilirubin,Urine Negative (Negative); Blood,Urine Small (Negative); Color,Urine Yellow; Glucose,Urine (UA) Negative (Negative); Ketones,Urine Negative (Negative); Leukocyte Esterase,Urine Negative (Negative); Mucus,Urine Many /hpf; Nitrite,Urine Negative (Negative); PH, Urine 5.5 (5.0-8.0); Protein,Urine Negative (Negative); RBC,Urine 14 /hpf (0-5); Specific Gravity,Urine 1.025 (1.001-1.035); Squamous Epithelial Cell,Urine <1 /hpf (0-4); Urobilinogen,Urine <2.0 mg/dL (<2.0); WBC,Urine 2 /hpf (0-5)
[2024-03-31 10:56] LABS: Basophils % (A) 0 %; Eosinophils # (A) 0.1 k/uL (0-0.7); Eosinophils % (A) 1 %; HCT 47.8 % (39.0-53.0); HGB 16.1 gm/dL (13.0-17.5); Lymphocytes # (A) 1.1 k/uL (1.0-4.8); Lymphocytes % (A) 12 %; MCHC 33.8 g/dL (31.0-37.0); MCV 88.9 fL (80.0-100.0); Mean Platelet Volume 7.8; Monocytes # (A) 0.6 k/uL (0-1.0); Monocytes % (A) 6 %; Neutrophils # (A) 7.8 k/uL (1.3-7.7); Neutrophils % (A) 79 %; Platelet Count 174 k/uL (150-450); RBC 5.38 m/uL (4.30-5.90); RDW 12.5 % (11.5-15.5); WBC 9.8 k/uL (3.8-10.6)
[2024-03-31 11:08] LABS: ALT 53 U/L (4-49); AST 38 U/L (17-59); African American GFR (CKD) >90 (>60 ml/min/1.73 sqM); Albumin 4.7 g/dL (3.5-5.0); Alkaline Phosphatase 78 U/L (38-126); Anion Gap 4 mmol/L; Blood Urea Nitrogen 19 mg/dL (9-20); Calcium 9.4 mg/dL (8.4-10.2); Carbon Dioxide 28 mmol/L (22-30); Chloride 108 mmol/L (98-107); Glucose 102 mg/dL (74-99); Non-African American GFR(CKD) 88 (>60 ml/min/1.73 sqM); Potassium 4.3 mmol/L (3.5-5.1); Sodium 140 mmol/L (137-145); Total Protein 6.9 g/dL (6.3-8.2)
--- NOTE | 2024-03-31 11:30 | CT ---
EXAMINATION TYPE: CT abdomen pelvis w con DATE OF EXAM: 03/31/2024 COMPARISON: 06/18/2019 CLINICAL INDICATION: Male, 59 years old with history of LLQ abd pain hx kid stones; PHH, flank paind TECHNIQUE: Performed without Oral Contrast and with IV Contrast, patient injected with 100 mL of Isovue 300. CT DLP: 1515.[address] CTDI: mGy Automated exposure control for dose reduction was used. FINDINGS: The lung bases are clear. There is cholelithiasis. There is no biliary ductal dilatation. No acute changes of cholecystitis. There is no focal mass or organomegaly involving the liver, pancreas, spleen or adrenal glands. There is an obstructing 5 mm calculus in the proximal left ureter resulting in moderate to marked lef t hydronephrosis. There is no right renal calcification. There is a parapelvic cyst within the right kidney. The caliber the abdominal aorta is normal is no retroperitoneal adenopathy or hemorrhage. The bowel loops are normal in caliber and there is no evidence of dilatation or obstruction. No infla mmatory changes are identified in the bowel wall or mesentery. There is no free intraperitoneal air or fluid. No pelvic mass, free fluid, abscess or adenopathy. The osseous structures and soft tissues are intact. IMPRESSION: 1. Moderate to marked left hydronephrosis secondary to an obstructing 5 mm calcification in the proxi mal left ureter. 2. Cholelithiasis without acute cholecystitis. [facility], , 03/31/2024 11:27 AM
[2024-03-31] MEDS: ONDANSETRON 4 MG/2 ML VIAL IVP STA (11:54)
[2024-03-31] MEDS: KETOROLAC 15 MG/ML 1 ML VIAL IVP STA (11:55)
[2024-03-31 12:27] VITALS: BP 124/77; PULSE 60
== END 2024-03-31 12:29 | disposition home or self-care (01) ==
LOC: EC 09:16
DX: N13.2 Hydronephrosis with renal and ureteral calculous obstruction (principal); K80.20 Calculus of gallbladder without cholecystitis without obstruction; Z88.0 Allergy status to penicillin; Z88.5 Allergy status to narcotic agent; Z90.49 Acquired absence of other specified parts of digestive tract
CPT/HCPCS: 36415; 93005; 80053; 83605; 85025; 81001; 87086; 74177; 99284; 96374; 96375; 96361; J2405; J1885; Q9967

== ENCOUNTER → 2024-04-04 | Outpatient (CLI) | payer OTHER ==
--- NOTE | 2024-04-04 14:48 | XR ---
EXAMINATION TYPE: XR KUB DATE OF EXAM: 04/04/2024 1:22 PM COMPARISON: 11/18/2017. 03/31/2024 CLINICAL INDICATION: Male, 59 years old with history of N20.1 CALCULUS LEFT URETER; [facility] TECHNIQUE: One radiographic view of the abdomen was obtained. FINDINGS: The bowel gas pattern is nonspecific without dilated loops of small or large bowel. . Fecal material and gas are demonstrated throughout the colon and rectum. There is no evidence for organome jaclyn or pneumoperitoneum. The osseous structures are intact. No abnormal calcifications are present . Calculus near the left L3 spinous process is not visualized. IMPRESSION: 1. Left ureteral calculus is not definitively visualized. Attention follow-up CT. 2. Nonspecific bowel gas pattern without radiographic evidence for acute process. [facility], Workstation: [facility], 04/04/2024 2:45 PM
== END | disposition home or self-care (01) ==
LOC: RADXRMAIN 12:52
PROVIDERS: ATTEND Urology
DX: N20.1 Calculus of ureter (principal)
CPT/HCPCS: 74018